=== PATIENT | male | born 1995 | race Two or more races ===

== ENCOUNTER 2020-03-14 07:59 | Emergency (ER) | payer BC ==
[2020-03-14 08:07] VITALS: BP 149/96; PULSE 93; TEMP 98.2; BMI 39.4
--- NOTE | 2020-03-14 08:20 | PDOC ---
History of Present Illness - General Chief Complaint: Weakness Stated Complaint: WEAKNESS Time Seen by Provider: 03/14/20 08:12 History Source: Patient - History of Present Illness Associated Symptoms: denies: chest pain, fever/chills, headaches, malaise, nausea/vomiting, seizure, shortness of breath Past History - Medical History Allergies/Adverse Reactions: Allergies Allergy/AdvReac Type Severity Reaction Status Date / Time shrimp Allergy Swelling Verified 03/14/20 08:26 Home Medications: Ambulatory Orders Fluticasone/Salmeterol [Advair 250-50 Diskus] 1 each IH DAILY 12/07/19 Asthma: Yes COPD: No - Psycho-Social/Smoking History Smoking History: Never smoked Have you smoked in the past 12 months: No Review of Systems - Review of Systems Able to Perform ROS?: Yes Constitutional: No: Chills, Fever, Unexplained wgt Loss HEENTM: No: Blurred Vision Respiratory: No: Shortness of Breath Cardiac (ROS): No: Chest Pain ABD/GI: No: Nausea, Vomiting Musculoskeletal: No: Neck Pain Integumentary: No: Bruising Neurological: Yes: Weakness. No: Headache, Numbness, Paresthesia, Tingling, Dizziness *Physical Exam - Vital Signs Last Vital Signs Temp Pulse Resp BP Pulse Ox 98.2 F 93 H 16 149/96 99 03/14/20 08:03 03/14/20 08:03 03/14/20 08:03 03/14/20 08:03 03/14/20 08:03 - Physical Exam General Appearance: Yes: Appropriately Dressed. No: Apparent Distress HEENT: positive: Normal Voice Neck: positive: Supple Respiratory/Chest: negative: Respiratory Distress Extremity: positive: Normal Inspection Integumentary: positive: Dry, Warm Neurologic: positive: portfolio management marketing II-XII NML intact, Fully Oriented, Alert, Normal Mood/Affect, Motor Strength 5/5 ED Treatment Course - LABORATORY CBC & Chemistry Diagram: 03/14/20 08:43 03/14/20 08:43 Medical Decision Making - Medical Decision Making 03/14/20 08:18 24-year-old male, here with on and off weakness in all 4 limbs for a month or more, getting worse and sometimes prevents him from going to work. Also reports 1 e/o possible b/l blurry vision several days ago. Denies sensory changes, ODOM, dizziness, n/v, neck or back pain. Presenting for medical eval for the first ti me today. Of note, patient tested + for covid ~4 months ago and was treated for Lyme 3 to 4 years ago. see exam Multiple extremity weakness on and off x > 1 month of unclear etiology Exam, including neuro, unremarkable Will check basic labs and if normal, dc w/ neuro and PMD f/u for further evalu ation 03/14/20 10:27 Labs remarkable for hemoglobin of 17.9 with a hematocrit of 52, no old for c omparison. The possibility of polycythemia vera considered and discussed with Dr. Amanda who recommends discharging with both heme-onc and neuro referrals. Discussed labs findings with patient who understands importance of following up with specialist for further diagnostic evaluation. Patient to also follow-up with his primary care physician as discussed Discharge - Discharge Information Problems reviewed: Yes Clinical Impression/Diagnosis: Weakness of extremity, Elevated hemoglobin Condition: Stable Disposition: HOME - Follow up/Referral Referrals: Maylin Bustamante [Primary Care Provider] - John Jose MD [Staff Physician] - Onofre Huitron MD [Staff Physician] - - Patient Discharge Instructions Additional Instructions: Your labs revealed an elevated hemoglobin and you will need further evaluation with a bean viner and a neurologist Also follow up with your PMD - Post Discharge Activity Work/Back to School Note: Back to Work
[2020-03-14 09:00] LABS: BASO % 0.3 % (0-2.0); EOS % 0.7 % (0-4.5); HEMATOCRIT 52.1 % (35.4-49); HEMOGLOBIN 17.9 GM/dL (11.7-16.9); LYMPH % 22.7 % (8-40); MCH 29.2 pg (25.7-33.7); MCHC 34.3 g/dl (32.0-35.9); MEAN CELL VOLUME 85.1 fl (80-96); MEAN PLT VOLUME 7.6 fl (7.5-11.1); MONO % 5.9 % (3.8-10.2); NEUT % 70.4 % (42.8-82.8); PLATELET COUNT 243 K/MM3 (134-434); RBC 6.12 M/mm3 (4.00-5.60); RDW 13.9 % (11.9-15.9)
[2020-03-14 09:28] LABS: PH,URINE 5.5 (5.0-8.0); URINE APPEARANCE CLEAR; URINE BILIRUBIN NEGATIVE (NEGATIVE); URINE COLOR YELLOW; URINE GLUCOSE (UA) NEGATIVE (NEGATIVE); URINE KETONE NEGATIVE (NEGATIVE); URINE LEUK ESTERASE NEGATIVE (NEGATIVE); URINE NITRITE NEGATIVE (NEGATIVE); URINE PROTEIN NEGATIVE (NEGATIVE); URINE UROBILINOGEN 0.2 mg/dL (0.2-1.0)
[2020-03-14 09:36] LABS: ALBUMIN 4.4 g/dl (3.4-5.0); BILIRUBIN,TOTAL 0.7 mg/dL (0.2-1); BLOOD UREA NITROGEN 13.7 mg/dL (7-18); CALCIUM 9.3 mg/dL (8.5-10.1); CREATININE 1.3 mg/dL (0.55-1.3); POTASSIUM 4.9 mmol/L (3.5-5.1); TOT PROT 8.1 g/dl (6.4-8.2)
== END 2020-03-14 10:08 | disposition home or self-care (01) ==
LOC: JER 07:59
DX: M62.81 Muscle weakness (generalized) (principal); R71.8 Other abnormality of red blood cells
CPT/HCPCS: 36415; 80053; 81003; 84443; 85025; 86618; 99283-25